=== PATIENT | male | born 1985 ===

== ENCOUNTER 2021-05-26 11:14 | Day surgery (SDC) | payer OTHER ==
[2021-05-26] MEDS ORDERED: ULTRAM50 MG PO (15:59)
[2021-05-26] MEDS ORDERED: TYLENOL ARTHRI650 MG PO (15:59)
[2021-05-26] MEDS ORDERED: MIRALAX17 GM PO (15:59)
[2021-05-26] MEDS ORDERED: NEURONTIN300 MG PO (15:59)
== END 2021-05-26 21:35 | disposition home or self-care (01) ==
LOC: CIR.AMB 11:14
PROVIDERS: ATTEND Surgery
DX: K42.0 Umbilical hernia with obstruction, without gangrene (principal); Z20.822 Contact with and (suspected) exposure to COVID-19